=== PATIENT | female | born 1985 | race Caucasian/White ===

== ENCOUNTER 2018-03-28 11:48 | Emergency (ER) | payer OTHER ==
[2018-03-28 12:24] VITALS: BMI 23.6
--- NOTE | 2018-03-28 12:48 | OBHP ---
Datetime: 03/28/2018 12:41 IP Adm Impression: Term, intrauterine IP Admit Plan: Observation/Evaluation Admit Comment, IP Provider: Patient is @ 39.4 wks with GDMA1 well controlled reporting increas ed cramping and blood tinged discharge. +FM, no leaking. Patient is GBS positive, and well controlled finger sticks. Patient on exam is /-3, EDK=274 mod wen, +accels, no decels, TOCO = j luis about q 10 mins, pt not very uncomfortable. Patient not in labor at this time, will discharge home, l abor precautions given, F/u tomorrow in office for U/S and doctor appt Pelvic Type - PN: Adequate Extremities - PN: Normal Abdomen - PN: Normal Back - PN: Normal Breast - PN: Normal Lungs - PN: Normal Heart - PN: Normal Thyroid - PN: Normal Neurologic - PN: Normal HEENT - PN: Normal General - PN: Normal FHR - Baseline A Provider: 140 Contraction Comments Provider: q 10 EGA AdmitDate IP: 39.4 Vital Signs Provider: Reviewed; Within Normal Limits IP Chief Complaint: Uterine contractions NICHD Variability Prov Fetus A: Moderate 6-25bpm NICHD Accel Fetus A IP Provider: 15X15 NICHD Decel Fetus A IP Provider: None Dilatation, Provider: 1 Effacement, Provider: 50 Station, Provider: -3 Genitourinary Exam: Normal DTRs - PN: Normal
--- NOTE | 2018-03-28 12:48 | OBDCSUM ---
Datetime: 03/28/2018 12:36 Discharged to, Provider: Home Follow up at, Provider: [facility] Disch Instr Activity: Normal activity Disch Instr Diet: Regular Discharge Time: 03/28/2018 12:37 Follow up in weeks, Provider: March 29 Disch Referrals: None Discharge Diagnosis Prov Other: false labor
== END 2018-03-28 12:37 | disposition home or self-care (01) ==
LOC: H.EROB2 11:48
DX: O47.1 False labor at or after 37 completed weeks of gestation (principal); O26.853 Spotting complicating pregnancy, third trimester; O26.93 Pregnancy related conditions, unspecified, third trimester; R10.2 Pelvic and perineal pain; Z3A.39 39 weeks gestation of pregnancy; O24.419 Gestational diabetes mellitus in pregnancy, unspecified control

== ENCOUNTER 2018-03-28 23:05 | Inpatient (IN) | payer OTHER ==
[2018-03-28 12:24] VITALS: BMI 23.6
[2018-03-28] MEDS ORDERED: Penicillin G Potassium 5 MU in Sodium Chloride 0.9% 50 ML IVPB ONE (23:57)
--- NOTE | 2018-03-29 00:28 | OBHP ---
Datetime: 03/28/2018 23:44 IP Adm Impression: Term, intrauterine IP Admit Plan: Admit to unit; Initiate labor protocol Admit Comment, IP Provider: Patient is IUP 39.4 wks with GDMA1 well controlled presents with i ncreased cramping and blood tinged discharge. +FM, no leaking. Patient presented at noon for same com plaint but states now pain is worse and feels ctx e/2-3 mins. PNC: Dr Mayberry, GBS positive [id number] mod wen, +accels, no decels. TOCO: e/2-3 mins VSS PE: see PE tab A/P: IUP 39.4 wks in active labor. -Admit to unit -initiate labor protocol -Penicillin -/maternal monitoring -monitor labor progression Case discused with Dr Jimenez. Wilder PGY1 Addendum: I saw and examined patient at presentation. Category 1 heart tracing. Patient in active labo r. Admitted for management of labor and delivery. IV penicillin G for GBS prophylaxis. I discussed pl an with patient and all patient questions answered. Patient requesting epidural. Contact anesthesia. Tony Pelvic Type - PN: Adequate Extremities - PN: Normal Abdomen - PN: Normal Back - PN: Not Done Breast - PN: Not Done Lungs - PN: Normal Heart - PN: Normal Thyroid - PN: Not Done Neurologic - PN: Normal HEENT - PN: Normal General - PN: Normal FHR - Baseline A Provider: 150 Membranes, Provider: Intact EGA AdmitDate IP: 39.4 Vital Signs Provider: Reviewed; Within Normal Limits IP Chief Complaint: Uterine contractions; Maternal discomfort NICHD Variability Prov Fetus A: Moderate 6-25bpm NICHD Accel Fetus A IP Provider: 15X15 FHR Category Provider Fetus A: Category I NICHD Decel Fetus A IP Provider: None Dilatation, Provider: 4 Effacement, Provider: 90 Station, Provider: -1 Genitourinary Exam: Normal DTRs - PN: Not Done
[2018-03-29 00:38] LABS: BASO # 0.1 K/uL (0.0-0.2); BASO % 0.8 % (0.0-2.0); EOS % 0.1 % (0.0-4.0); HEMOGLOBIN 13.1 g/dL (12.0-16.0); LYMPH # 1.7 K/uL (1.0-4.3); LYMPH % 13.1 % (20.0-40.0); MEAN CELL VOLUME 85.5 fl (81.0-99.0); MEAN CORPUSCULAR HEMOGLOBIN 28.2 pg (27.0-31.0); MEAN PLATELET VOLUME 8.8 fl (7.2-11.7); MONO # 0.5 K/uL (0.0-0.8); MONO % 3.7 % (0.0-10.0); NEUT # 10.8 K/uL (1.8-7.0); NEUT % 82.3 % (50.0-75.0); RBC 4.64 Mil/uL (3.80-5.20); RED CELL DISTRIBUTION WIDTH 14.7 % (11.5-14.5); WHITE BLOOD COUNT 13.1 K/uL (4.8-10.8)
[2018-03-29] MEDS: Lactated Ringer's 1,000 ML IV SCH ×4 (01:00→05:43)
[2018-03-29 01:01] VITALS: PULSE 74; O2SAT 100
[2018-03-29] MEDS ORDERED: Fentanyl/Bupivacaine HCl 0 ML EPI ONE (01:04)
[2018-03-29] MEDS ORDERED: Oxytocin 30 units/LR 500ML 30 U/500 ML BAG IV ONE (01:09)
[2018-03-29] MEDS ORDERED: Lidocaine 1% Inj (20ml) ONE (01:09)
--- NOTE | 2018-03-29 09:12 | OBPN ---
Datetime: 03/29/2018 08:30 IP Progress Impression: Normal progression of labor; Reassuring heart rate IP Procedures: Sterile Vag Exam IP Progress Plan: Continue present management; Anticipate Vaginal Delivery Contraction Comments Provider: q3min FHR - Baseline A Provider: 120s-130s IP Progress Note Comment: Labor progressing well. Category I FHT. Anticipate . Vital Signs Provider: Reviewed; Within Normal Limits NICHD Accel Fetus A IP Provider: 15X15 FHR Category Provider Fetus A: Category I NICHD Variability Prov Fetus A: Moderate 6-25bpm Dilatation, Provider: 10 Effacement, Provider: 100 Station, Provider: 2 NICHD Decel Fetus A IP Provider: None Datetime: 03/28/2018 23:44 Membranes, Provider: Intact
--- NOTE | 2018-03-29 09:17 | OBPN ---
Datetime: 03/29/2018 09:15 IP Progress Impression: Normal progression of labor; Reassuring heart rate IP Procedures: Artificial ROM; Sterile Vag Exam IP Progress Plan: Continue present management; Anticipate Vaginal Delivery Membranes, Provider: Ruptured Amniotic Fluid Color, Provider: Clear Contraction Comments Provider: q2-3min FHR - Baseline A Provider: 130s-140s IP Progress Note Comment: Pt to begin pushing. Cat I FHT. Anticipate Vital Signs Provider: Reviewed; Within Normal Limits NICHD Accel Fetus A IP Provider: 15X15 FHR Category Provider Fetus A: Category I NICHD Variability Prov Fetus A: Moderate 6-25bpm Dilatation, Provider: 10 Effacement, Provider: 100 Station, Provider: 2 NICHD Decel Fetus A IP Provider: None
[2018-03-29] MEDS ORDERED: Benzocaine/Menthol SPRAY TOP PRN (11:10)
[2018-03-29] MEDS ORDERED: Vitamin A/D oint 60G TP PRN (13:02)
--- NOTE | 2018-03-29 19:24 | OBDS ---
DELIVERY PERSONNEL Delivery Doctor: Daniel Jimenez MD Outdoor Recreation Specialist: Geoff Ackerman RN/ Benjamin Saldivar RN MATERNAL INFORMATION Delivery Anesthesia: Epidural Medications in Delivery: Pitocin 30 units Estimated Blood Loss (ml): 300 Placenta Cultured: No Maternal Complications: None Provider Comments: Normal spontaneous vaginal delivery. Patient delivered viable with Apgars of 9 and 9 at one and 5 minutes respectively. Placenta delivered spontaneously. Laceration repaired, as above. Uterus firm and appropriately hemostatic fol lowing delivery. Patient tolerated delivery and repair well. Estimated blood loss 200 mL. No complica tions. LABOR SUMMARY EDC: 03/31/2018 00:00 No. Babies in Womb: 1 Attempted: No Labor Anesthesia: Epidural LABOR INFORMATION Reason for Induction: Not Applicable Reason for Induction Other: N/A Onset of Labor: 03/28/2018 23:45 Complete Dilatation: 03/29/2018 08:18 Other Ripening Agents: N/A Oxytocin: N/A Group B Beta Strep: Positive Antibiotics # of Doses: 3 (Penicillin G) Antibiotics Time of Last Dose: 924 Steroids Given: None Reason Steroids Not Administered: Not Applicable Other Reason Not Administered: N/A MEMBRANES Membranes Rupture Method: Artificial Rupture of Membranes: 03/29/2018 09:15 Length of Rupture (hrs): 1.32 Amniotic Fluid Color: Clear Amniotic Fluid Amount: Moderate Amniotic Fluid Odor: None STAGES OF LABOR Stage 1 hrs: 8 Stage 1 min: 33 Stage 2 hrs: 2 Stage 2 min: 16 Stage 3 hrs: 0 Stage 3 min: 6 Total Time in Labor hrs: 10 Total Time in Labor min: 55 VAGINAL DELIVERY Episiotomy: None Laceration Extension: Second Degree Laceration Repair Note: Second-degree midline perineal laceration. Area infiltrated with 1% lidocain e. Laceration repaired without complication. Patient tolerated repair well. Initial Vag Sponge Count: 20 sponges _ 5 laps Final Vag Sponge Count: 20 sponges _ 5 laps Initial Vag Sharps Count: 6 sutures _ 2 needles Final Vag Sharps Count: 6 sutures _ 2 needles Sponge Count Correct: Yes Sharps Count Correct: Yes Count Comment: count correct and acknowledged by MD BABY A INFORMATION Delivery Date/Time: 03/29/2018 10:34 Method of Delivery: Vaginal Born in Route : No : N/A Forceps: N/A Vacuum Extraction: N/A Shoulder Dystocia : No SHOULDER DYSTOCIA BABY A Delivery Date/Time: 03/29/2018 10:34 PRESENTATION/POSITION BABY A Presentation: Cephalic Cephalic Presentation: Vertex Breech Presentation: N/A PLACENTA INFORMATION BABY A Placenta Delivery Time : 03/29/2018 10:40 Placenta Method of Delivery: Spontaneous Placenta Status: Delivered SCORES BABY A Heart Rate 1 min: >100 bpm Resp Effort 1 min: Good Cry Reflex Irritability 1 min: Cough or Sneeze or Pulls Away Muscle Tone 1 min: Active Motion Color 1 min: Body [place], Extremities Blue Resuscitation Effort 1 min: Tactile Stimulation SCORE 1 MIN: 9 Heart Rate 5 min: >100 bpm Resp Effort 5 min: Good Cry Reflex Irritability 5 min: Cough or Sneeze or Pulls Away Muscle Tone 5 min: Active Motion Color 5 min: Body [place], Extremities Blue Resuscitation Effort 5 min: N/A SCORE 5 MIN: 9 INFORMATION BABY A Gestational Age at Delivery: 39.5 Gestational Status: Term Infant Outcome : Liveborn Infant Condition : Stable Sex: Female IDENTIFICATION/MEDS BABY A ID Band Number: [id number] ID Band Location: Left Leg; Left Arm Vitamin K Given : Not Given Erythromycin Given: Not Given WEIGHT/LENGTH BABY A Birthweight (gms): 3070 Weight (lb): 6 Infant Weight (oz): 12 CORD INFORMATION BABY A No. Cord Vessels: 3 Nuchal Cord : N/A Nuchal Cord Other: N/A True Knot: 0 Infant Cord pH Baby Arterial: N/A Cord pH Baby Venous: N/A Cord Blood Taken: Yes Banking/Donate Info: N/A Suction: Mouth; Nose ASSESSMENT BABY A Infant Complications: None Physical Findings at Delivery: Within Normal Limits Infant Respirations: Appears Normal Central Processing Technician/ALS Called : No Infant Care By: Benjamin Saldivar RN/ Geoff Ackerman RN Transferred To: Remains with Mother
--- NOTE | 2018-03-29 19:25 | OBDS ---
DELIVERY PERSONNEL Delivery Doctor: Daniel Jimenez MD Agricultural And Forestry Supervisor: Geoff Ackerman RN/ Benjamin Saldivar RN MATERNAL INFORMATION Delivery Anesthesia: Epidural Medications in Delivery: Pitocin 30 units Estimated Blood Loss (ml): 300 Placenta Cultured: No Maternal Complications: None Provider Comments: Normal spontaneous vaginal delivery. Patient delivered viable with Apgars of 9 and 9 at one and 5 minutes respectively. Placenta delivered spontaneously. Laceration repaired, as above. Uterus firm and appropriately hemostatic fol lowing delivery. Patient tolerated delivery and repair well. Estimated blood loss 200 mL. No complica tions. LABOR SUMMARY EDC: 03/31/2018 00:00 No. Babies in Womb: 1 Attempted: No Labor Anesthesia: Epidural LABOR INFORMATION Reason for Induction: Not Applicable Reason for Induction Other: N/A Onset of Labor: 03/28/2018 23:45 Complete Dilatation: 03/29/2018 08:18 Other Ripening Agents: N/A Oxytocin: N/A Group B Beta Strep: Positive Group B Beta Strep: Positive Antibiotics # of Doses: 3 (Penicillin G) Antibiotics Time of Last Dose: 924 Steroids Given: None Reason Steroids Not Administered: Not Applicable Other Reason Not Administered: N/A MEMBRANES Membranes Rupture Method: Artificial Rupture of Membranes: 03/29/2018 09:15 Length of Rupture (hrs): 1.32 Amniotic Fluid Color: Clear Amniotic Fluid Amount: Moderate Amniotic Fluid Odor: None STAGES OF LABOR Stage 1 hrs: 8 Stage 1 min: 33 Stage 2 hrs: 2 Stage 2 min: 16 Stage 3 hrs: 0 Stage 3 min: 6 Total Time in Labor hrs: 10 Total Time in Labor min: 55 VAGINAL DELIVERY Episiotomy: None Laceration Extension: Second Degree Laceration Repair Note: Second-degree midline perineal laceration. Area infiltrated with 1% lidocain e. Laceration repaired without complication. Patient tolerated repair well. Initial Vag Sponge Count: 20 sponges _ 5 laps Final Vag Sponge Count: 20 sponges _ 5 laps Initial Vag Sharps Count: 6 sutures _ 2 needles Final Vag Sharps Count: 6 sutures _ 2 needles Sponge Count Correct: Yes Sharps Count Correct: Yes Count Comment: count correct and acknowledged by MD BABY A INFORMATION Infant Delivery Date/Time: 03/29/2018 10:34 Method of Delivery: Vaginal Born in Route : No : N/A Forceps: N/A Vacuum Extraction: N/A Shoulder Dystocia : No SHOULDER DYSTOCIA BABY A Delivery Date/Time: 03/29/2018 10:34 PRESENTATION/POSITION BABY A Presentation: Cephalic Cephalic Presentation: Vertex Breech Presentation: N/A PLACENTA INFORMATION BABY A Placenta Delivery Time : 03/29/2018 10:40 Placenta Method of Delivery: Spontaneous Placenta Status: Delivered SCORES BABY A Heart Rate 1 min: >100 bpm Resp Effort 1 min: Good Cry Reflex Irritability 1 min: Cough or Sneeze or Pulls Away Muscle Tone 1 min: Active Motion Color 1 min: Body [place], Extremities Blue Resuscitation Effort 1 min: Tactile Stimulation SCORE 1 MIN: 9 Heart Rate 5 min: >100 bpm Resp Effort 5 min: Good Cry Reflex Irritability 5 min: Cough or Sneeze or Pulls Away Muscle Tone 5 min: Active Motion Color 5 min: Body [place], Extremities Blue Resuscitation Effort 5 min: N/A SCORE 5 MIN: 9 INFORMATION BABY A Gestational Age at Delivery: 39.5 Gestational Status: Term Infant Outcome : Liveborn Infant Condition : Stable Sex: Female IDENTIFICATION/MEDS BABY A ID Band Number: [id number] ID Band Location: Left Leg; Left Arm Vitamin K Given : Not Given Erythromycin Given: Not Given WEIGHT/LENGTH BABY A Infant Birthweight (gms): 3070 Infant Weight (lb): 6 Weight (oz): 12 CORD INFORMATION BABY A No. Cord Vessels: 3 Nuchal Cord : N/A Nuchal Cord Other: N/A True Knot: 0 Cord pH Baby Arterial: N/A Infant Cord pH Baby Venous: N/A Cord Blood Taken: Yes Banking/Donate Info: N/A Suction: Mouth; Nose ASSESSMENT BABY A Infant Complications: None Physical Findings at Delivery: Within Normal Limits Infant Respirations: Appears Normal [employer] Worker/ALS Called : No Care By: Benjamin Saldivar RN/ Geoff Ackerman RN Transferred To: Remains with Mother
[2018-03-30] MEDS ORDERED: Lansinoh for Breast Feeding Mothers TP ONE (05:30)
[2018-03-30 06:25] LABS: HEMOGLOBIN 9.8 g/dL (12.0-16.0); MEAN CORPUSCULAR HEMOGLOBIN 28.5 pg (27.0-31.0); MEAN CORPUSCULAR HGB CONC 33.1 g/dL (33.0-37.0); RBC 3.43 Mil/uL (3.80-5.20); RED CELL DISTRIBUTION WIDTH 14.8 % (11.5-14.5); WHITE BLOOD COUNT 14.4 K/uL (4.8-10.8)
[2018-03-30] MEDS ORDERED: Multivitamin With Minerals Tab PO SCH (09:00)
[2018-03-30] MEDS ORDERED: Vitamin A/D oint 60G TP PRN (17:06)
[2018-03-30] MEDS ORDERED: Benzocaine/Menthol SPRAY TOP PRN (17:06)
--- NOTE | 2018-03-31 08:11 | OBPPN ---
Datetime: 03/30/2018 08:08 PP Pain Prov: Within normal limits PP Nausea Prov: Denies PP Flatus Prov: Yes PP Breasts Prov: Not Done PP Heart Prov: Normal PP Lungs Prov: Normal PP Abdomen/Uterus Prov: Normal PP Lochia Prov: Not Done PP Vulva/Perineum Prov: Not Done PP CVA Tenderness Prov: Normal PP Extremities Prov: Normal PP Impression Prov: Normal progression PP Plan Prov: Continue present management PP Progress Note Prov: Patient did well ambulating tolerating diet and voiding without difficulty Vital signs stable afebrile Uterus firm below the umbilicus Extremities no Homans day #1 Anticipate discharge in a.m., analgesia as needed Vital Signs Provider PP: Reviewed
[2018-03-31] MEDS ORDERED: Multivitamin With Minerals Tab PO SCH (09:00)
--- NOTE | 2018-03-31 12:11 | OBDCSUM ---
Datetime: 03/31/2018 12:01 Discharged to, Provider: Home Follow up at, Provider: [facility] Disch Instr Activity: May Shower Disch Instr Diet: Regular Discharge Instructions, Provider: Routine instructions given Discharge Diagnosis, Provider: Term Delivered Discharge Time: 03/31/2018 13:00 Follow up in weeks, Provider: 4 WEEKS Disch Referrals: None Contraception discussed, Prov: Yes Disch Activity Restrictions: No lifting; No sexual activity; Nothing in vagina - Flippin, tampon s, douche Datetime: 03/28/2018 12:36 Disch Instr Activity: Normal activity; May Shower Disch Activity Restrictions: No lifting; No sexual activity; Nothing in vagina - Flippin, tampon s, douche
--- NOTE | 2018-03-31 12:11 | OBPPN ---
Datetime: 03/31/2018 12:09 PP Pain Prov: Within normal limits PP Nausea Prov: Denies PP Flatus Prov: Yes PP BM Prov: Yes PP Breasts Prov: Normal PP Heart Prov: Normal PP Lungs Prov: Normal PP Abdomen/Uterus Prov: Normal PP Lochia Prov: Normal PP Vulva/Perineum Prov: Normal PP CVA Tenderness Prov: Normal PP Extremities Prov: Normal PP C/S Incision Prov: Not Applicable PP Progress Prov: Normal PP Comments Phys Exam Prov: Abdomen soft, nontender, nondistended Uterus firm, below umbilicus Neuro deep calf tenderness bilaterally PP Impression Prov: Normal progression PP Plan Prov: Discharge PP Progress Note Prov: day #2 status post , patient recovering well Discharge patient home with instructions Follow-up in office in 6 weeks for visit IP PP Procedures: None
[2018-03-31 22:47] VITALS: BP 115/65; RESP 20; TEMP 98.2
== END 2018-03-31 14:00 | disposition home or self-care (01) | DRG 775 ==
LOC: H.EROB2 23:05 → H.L&D 23:55 → H.OB/GYN 03-29 12:45
PROVIDERS: ADMIT Obstetrics & Gynecology; ATTEND Obstetrics & Gynecology
PROC: 4A1HXCZ Monitoring of Products of Conception, Cardiac Rate, External Approach (ICD-10-PCS; 2018-03-28)
PROC: 10E0XZZ Delivery of Products of Conception, External Approach (ICD-10-PCS; principal; 2018-03-29)
PROC: 0KQM0ZZ Repair Perineum Muscle, Open Approach (ICD-10-PCS; 2018-03-29)
PROC: 10907ZC Drainage of Amniotic Fluid, Therapeutic from Products of Conception, Via Natural or Artificial Opening (ICD-10-PCS; 2018-03-29)
DX: O24.420 Gestational diabetes mellitus in childbirth, diet controlled (principal); O70.1 Second degree perineal laceration during delivery; O99.824 Streptococcus B carrier state complicating childbirth; Z37.0 Single live birth; Z3A.39 39 weeks gestation of pregnancy